=== PATIENT | female | born 1975 | race Caucasian/White ===

== ENCOUNTER 2024-08-27 22:13 | Emergency (ER) | payer OTHER ==
[~2024-08-27] VITALS: Ht 167.6 cm; Wt 64.0 kg
[2024-08-27 22:15] VITALS: O2SAT 99
[2024-08-27] MEDS ORDERED: TRANEXAMIC ACID 1,000 MG in SODIUM CHLORIDE 0.9% 100 ML TP ONE (22:45)
[2024-08-27] MEDS ORDERED: CLONIDINE 0.2MG TABLET PO ONE (22:45)
[2024-08-27] MEDS: TRANEXAMIC ACID 1,000MG/10ML TP NR (22:45)
[2024-08-27] MEDS ORDERED: CLONIDINE 0.1MG TABLET PO NR (22:45)
[2024-08-27] MEDS: CLONIDINE 0.1MG TABLET PO NR (23:19)
[2024-08-27 23:33] LABS: BASOPHILS % 0.9 % (0.0-2.0); EOSINOPHILS % 1.3 % (0.0-5.0); HEMATOCRIT. 30.5 % (36.0-48.0); HEMOGLOBIN. 10.1 g/dL (12.0-16.0); LYMPHOCYTES % 20.4 % (20.0-50.0); MEAN CORPUSCULAR HEMOGLOBIN 27.8 pg (28.0-32.0); MEAN CORPUSCULAR VOLUME 84.3 fL (81.0-99.0); MEAN PLATELET VOLUME 7.3 fl (7.4-10.4); MONOCYTES % 7.4 % (2.0-8.0); PLATELET 423 x1000/uL (130-400); RED BLOOD CELL COUNT 3.62 mill/uL (4.2-5.4); RED CELL DISTRIBUTION WIDTH 15.2 % (11.6-14.6); WHITE BLOOD COUNT 10.2 x1000/uL (4.5-11.0)
[2024-08-27 23:42] LABS: CHLORIDE 106 mEq/L (98-107); POTASSIUM 3.8 mEq/L (3.5-5.1); SODIUM 139 mEq/L (136-145)
[2024-08-27 23:43] LABS: CARBON DIOXIDE 22 mEq/L (21-32); PARTIAL THROMBOPLASTIN TIME 23.2 sec (23.4-31.0); PROTHROMBIN TIME 10.7 sec (9.6-11.0)
[2024-08-27 23:44] LABS: CALCIUM 9.5 mg/dL (8.7-10.4)
[2024-08-27 23:48] LABS: CREATININE 0.9 mg/dL (0.6-1.0); GLUCOSE 161 mg/dL (70-105); UREA NITROGEN BLOOD 19 mg/dL (9-23)
[2024-08-28] MEDS: ONDANSETRON 4MG ODT PO ONE (00:53)
[2024-08-28] MEDS: OXYMETAZOLINE HCL NASAL SPRAY 15ML BOTHNSTRLS SCH (02:12)
[2024-08-28 02:23] VITALS: BP 116/79; PULSE 90; RESP 14; TEMP 36.8; O2SAT 98
== END 2024-08-28 02:20 | disposition home or self-care (01) ==
LOC: ER 22:13 → EDBD 22:13 → ER 08-28 02:20
DX: R04.0 Epistaxis (principal); I10 Essential (primary) hypertension
CPT/HCPCS: 99285; 80048; 85025; 85610; 85730; 36415; Q0162; J7050